=== PATIENT | female | born 1995 | race Caucasian/White ===

== ENCOUNTER 2017-06-06 16:26 | Emergency (ER) | payer MEDICAID, OTHER ==
[~2017-06-06] VITALS: Ht 167.6 cm; Wt 74.0 kg
[~2017-06-06 16:26] MED LIST: PREN-169 BC
[2017-06-06 18:15] VITALS: BP 130/86
== END 2017-06-06 19:04 | disposition home or self-care (01) ==
LOC: EMS 16:27
DX: R21 Rash and other nonspecific skin eruption (principal); R03.0 Elevated blood-pressure reading, without diagnosis of hypertension
CPT/HCPCS: 99283